=== PATIENT | female | born 1995 | race African-American/Black ===

== ENCOUNTER 2017-11-23 02:13 | Emergency (ER) | payer BC, OTHER ==
--- NOTE | 2017-11-23 02:19 | PDOC ---
History of Present Illness - General Chief Complaint: Pain, Acute Stated Complaint: LEFT KNEE PAIN/HIVES SINCE SEPTEMBER Time Seen by Provider: 11/23/17 02:19 History Source: Patient Exam Limitations: No Limitations - History of Present Illness Initial Comments: 11/23/17 02:29 This is a 22-year-old female who comes in complaining of 3 complaints. Patient was here with her friend who had a laceration and she decided to sign in as well. Complaint #1 intermittent hives times several months patient is complaining of intermittent hives on her left leg only times several months. Patient does not currently have any hives at this time. Patient denies any new lotions creams or ointments patient said that she is under a lot of stress. Patient denies any treatment for the pain just resolves spontaneously after a few hours she says Complaint #2 left knee pain. Patient said that she fell several weeks ago and since then has had intermittent left knee pain. Patient said that standing and walking on it a lot seems to make it worse. Patient denies any swelling or ecchymosis to the knee patient denies any fevers chills. Patient said the knee is not bothering her at this time. Complaint #3 left foot skin dryness. Patient is complaining that the skin on the bottom of her foot especially between her toes is very dry and flaky. Patient said she puts lotion on it without relief. Patient said that the area is also very itchy. Patient denies any pain. PAST MEDICAL HISTORY: no significant history PAST SURGICAL HISTORY: no significant history FAMILY HISTORY: no pertinant history SOCIAL HISTORY: Pt lives with family and is employed. MEDICATIONS: reviewed ALLERGIES: As per nursing notes Review of Systems General: No fevers or chills, no weakness, no weight loss HEENT: No change in vision. No sore throat,. No ear pain CardioVascular: No chest pain or shortness of breath Respiratory:No cough, or wheezing. Gastrointestinal: no nausea, vomitting, diarrhea or constipation, No rectal bleeding Genitourinary: No dysuria, hematuria, or frequency Musculoskeletal: No joint or muscle pain or swelling, left flank pain as per history of present illness Neurologic: No headache, vertigo, dizziness or loss of consciousness Psychiatric: nor depression Skin: No rashes, dryness and hives as per history of present illness Endocrine: no increased thirst or abnormal weight change Allergic: no skin or latex allergy All other systems reviewed and normal GENERAL: The patient is awake, alert, and fully oriented, in no acute distress. HEAD: Normal with no signs of trauma. EYES: Pupils equal, round and reactive to light, extraocular movements intact, sclera anicteric, conjunctiva clear. EXTREMITIES: Normal range of motion, no edema. Left knee: Patient is noted to not have any limping. There is no swelling or ecchymosis of the knee, there is no palpable effusion. There is no tenderness on palpation neurovascular is intact, there is no ligamentous instability. NEUROLOGICAL: Normal speech, normal gait. grossly intact PSYCH: Normal mood, normal affect. SKIN: Warm, Dry, normal turgor, no rashes or lesions noted. Specifically there are no hives on the left leg Skin on the bottom of the left foot: The skin is dry and flaky with some areas of excoriation. It is worse between the toes and there is no discharge or lesions. Neurovascular is intact. Assessment and plan this is a 22-year-old female came in with 3 complaints. Complaint #1 of hives is not present at this time discussed with patient possible etiologies and recommended that she take Claritin or Benadryl And the collar and follow-up with an project development engineer for ALLERGY testing to see if there is anything in her environment that could be causing them. Complaint #2 left knee pain. There is no pain at this time. Patient did fall and injure and when she stresses the knee by working and standing on a long time it appears to be a problem for her. Recommended that she take any anti- inflammatory before going to work and use some extra support such as a sleep or elastic sleeve at work. Complaint #3 dry skin on the bottom of her foot is consistent with athlete's foot or a fungal infection recommended she get an [id number] medication for athlete's foot and use it as directed on the container. Patient discharged home Past History - Past Medical History Allergies/Adverse Reactions: Allergies Allergy/AdvReac Type Severity Reaction Status Date / Time No Known Allergies Allergy Verified 11/23/17 02:16 Home Medications: Ambulatory Orders NK [No Known Home Medication] 11/23/17 *DC/Admit/Observation/Transfer Diagnosis at time of Disposition: Hives of unknown origin, Athlete's foot on left, Left anterior knee pain - Discharge Dispostion Disposition: HOME Condition at time of disposition: Stable Admit: No - Referrals - Patient Instructions Additional Instructions: For the hives U can take a nondrowsy medication such as Duyen or Claritin or also Benadryl which may make you drowsy. Follow-up with an project development engineer for ALLERGY testing to see if there is anything in your environment that may be causing the hives For the left knee pain take an anti-inflammatory such as Motrin or Aleve before going to work and wear some additional support such as an elastic sleeve or Lenard wrap over the knee. The symptoms well improve with time however if they do not follow up with an orthopedist. For the dry skin on the bottom of foot it looks like you have athlete's foot which is a fungal infection. Over the pharmacy and purchased [id number] spray for athlete's foot and use it as directed on the box or spray bottle Return to the emergency department immediately with ANY new, persistent or worsening symptoms. Continue any medications as previously prescribed by your physician. You should follow up with your primary doctor as soon as possible regarding today's emergency department visit. . Please make sure your doctor reviews the results of your emergency evaluation. Thank you for coming to the Emergency Department today for your care. It was a pleasure to see you today. Please note that your evaluation is INCOMPLETE until you follow-up with your doctor. - Post Discharge Activity
[2017-11-23 02:26] VITALS: BP 136/84; PULSE 94; TEMP 98.4; BMI 42.9
== END 2017-11-23 02:39 | disposition home or self-care (01) ==
LOC: FER 02:13
DX: M25.562 Pain in left knee (principal); B35.3 Tinea pedis; L50.9 Urticaria, unspecified
CPT/HCPCS: 99281-25